=== PATIENT | female | born 1995 | race Caucasian/White ===

== ENCOUNTER 2020-10-13 06:43 | Emergency (ER) | payer OTHER ==
[2020-10-13 07:31] LABS: HEMOGLOBIN 12.5 gm/dl (12.3-15.3); RED BLOOD COUNT 4.3 M/UL (4.00-5.10); WHITE BLOOD COUNT 5.8 K/UL (4.5-11.0)
[2020-10-13 07:52] LABS: BUN/CREATININE RATIO 25 (0-10)
[2020-10-13] MEDS ORDERED: MACROBID 100 M100 MG PO ×2 (10:22→10:26)
== END 2020-10-13 10:36 | disposition home or self-care (01) ==
LOC: ER1 06:43
PROVIDERS: Emergency Medicine
DX: O20.9 Hemorrhage in early pregnancy, unspecified (principal); O26.891 Other specified pregnancy related conditions, first trimester; N85.8 Other specified noninflammatory disorders of uterus; O99.331 Smoking (tobacco) complicating pregnancy, first trimester; F17.200 Nicotine dependence, unspecified, uncomplicated; Z3A.08 8 weeks gestation of pregnancy
CPT/HCPCS: 76817; 80053; 81001; 84702; 85025; 86900; 86901; 99284

== ENCOUNTER 2020-10-24 15:36 | Emergency (ER) | payer OTHER ==
[~2020-10-24 15:36] MED LIST: MACROBID 100 M100 MG PO
[2020-10-24 20:10] LABS: RED BLOOD COUNT 3.72 M/UL (4.00-5.10); WHITE BLOOD COUNT 6.9 K/UL (4.5-11.0)
[2020-10-24 20:24] LABS: BUN/CREATININE RATIO 13 (0-10)
[2020-10-24] MEDS ORDERED: [UNRECOGNIZED DRUG - REMARK] (21:30)
== END 2020-10-24 21:41 | disposition home or self-care (01) ==
LOC: ER1 15:36
PROVIDERS: Family Medicine
DX: O03.9 Complete or unspecified spontaneous abortion without complication (principal)
CPT/HCPCS: 36415; 80053; 81001; 84702; 85025; 86900; 86901; 99284